=== PATIENT | female | born 1980 | race Caucasian/White ===

== ENCOUNTER 2018-11-15 08:00 | Inpatient (IN) | payer OTHER ==
[2018-11-15 08:32] VITALS: BMI 38.4
[2018-11-15] MEDS ORDERED: ELECTROLYTE-148 SOLN 1,000 ML IV ONE (09:15)
[2018-11-15] MEDS ORDERED: CITRIC ACID/SODIUM CITRATE 30 ML UNIT-DOSE CUP PO ONE (09:15)
[2018-11-15] MEDS ORDERED: ELECTROLYTE-148 SOLN 1,000 ML IV SCH ×2 (09:15→10:30)
[2018-11-15] MEDS ORDERED: TUBERCULIN PPD 5 TU/0.1ML SYRINGE (IN PATIENT USE ONLY) ID ONE (10:00)
--- NOTE | 2018-11-15 10:25 | HP ---
Past Medical History - Primary Care Physician PCP:: Shantelle Lofton - Admission Chief Complaint: Previous Section X 2 History of Present Illness: 38 yo AMA obesity edc EGA 39 weeks admitted repeat section History Source: Patient Limitations to Obtaining History: No Limitations - Past Medical History ...: 3 ...Para: 2 ...Term: 2 ...: 0 ...Spon : 0 ...Induced : 0 ...Multiple Gestation: 0 ...EDC by Sono: 11/21/18 - Past Surgical History Past Surgical History: Yes: Hx Myomectomy: No Hx Transabdominal Cerclage: No - Smoking History Smoking history: Never smoked Have you smoked in the past 12 months: No - Alcohol/Substance Use Hx Alcohol Use: No History of Substance Use: reports: None - Social History Usual Living Arrangement: Yes: With Spouse History of Recent Travel: No Home Medications - Allergies Allergies/Adverse Reactions: Allergies Allergy/AdvReac Type Severity Reaction Status Date / Time No Known Drug Allergies Allergy Verified 12/06/12 11:56 - Home Medications Home Medications: Ambulatory Orders Acetaminophen [Tylenol .Regular Strength -] 325 mg PO Q4H PRN #2 tablet Ibuprofen [Motrin -] 200 mg PO Q4H PRN #3 tablet 12/10/12 Review of Systems - Review of Systems Constitutional: reports: No Symptoms Eyes: reports: No Symptoms HENT: reports: No Symptoms Neck: reports: No Symptoms Cardiovascular: reports: No Symptoms Respiratory: reports: No Symptoms Gastrointestinal: reports: No Symptoms Genitourinary: reports: No Symptoms Breasts: reports: No Symptoms Reported Musculoskeletal: reports: No Symptoms Integumentary: reports: No Symptoms Neurological: reports: No Symptoms Endocrine: reports: No Symptoms Hematology/Lymphatic: reports: No Symptoms Psychiatric: reports: No Symptoms Physical Exam - Maternity Vital Signs: Vital Signs Temperature 98.1 F 11/15/18 08:00 Pulse Rate 98 H 11/15/18 08:00 Respiratory Rate 18 11/15/18 08:00 Blood Pressure 117/80 11/15/18 08:00 O2 Sat by Pulse Oximetry (%) Constitutional: Yes: Well Nourished, No Distress Neck: Yes: WNL Cardiovascular: Yes: WNL, Regular Rate and Rhythm Lungs: Clear to auscultation Breast(s): Yes: WNL - Abdominal Exam/OB Presentation: Vertex Contractions: No Monitor Mode: External Heart Rate (range): 150 Category: I - Vaginal Exam/OB Vaginal Bleediing: No Dilatation (cm): closed Effacement (%): long Presentation: Vertex/Position Station: -1 - Physical Exam Edema: No Integumentary: Yes: WNL Hemorrhage Risk Assessment - Risk Factors Medium Risk Factors: Yes: Prior , uterine surgery,or multiple laparotomies Risk Score: 1 Risk Level: Medium Risk Problem List - Problems (1) Previous section Code(s): Z98.891 - HISTORY OF UTERINE SCAR FROM PREVIOUS SURGERY Assessment/Plan Previous Section x 2 iup at 39 weeks plan Repeat Section
[2018-11-15] MEDS ORDERED: METHYLERGONOVINE MALEATE 0.2 MG/1 ML AMP IM PRN (10:27)
[2018-11-15] MEDS ORDERED: ceFAZolin SODIUM 1 GM VIAL ONE (10:46)
[2018-11-15] MEDS ORDERED: ePHEDrine SULFATE 50 MG/1 ML AMPULE ONE (10:46)
[2018-11-15] MEDS ORDERED: morphine SULFATE/Preservative Free 0.5 MG/ML (1cc Syringe) ONE (10:46)
[2018-11-15] MEDS ORDERED: DEXAMETHASONE SOD PHOSPHATE 4 MG/1 ML VIAL ONE (11:19)
[2018-11-15] MEDS ORDERED: OXYTOCIN 10 UNITS/ML VIAL ONE (11:19)
[2018-11-15] MEDS ORDERED: KETOROLAC TROMETHAMINE 30 MG/1 ML VIAL ONE (11:19)
[2018-11-15] MEDS ORDERED: IBUPROFEN 800 MG/8 ML IJ IVPB PRN (11:41)
[2018-11-15 11:56] LABS: VENOUS PC02 46.2 mmHg (41-51)
[2018-11-15 11:59] LABS: VENOUS PH 7.35 (7.31-7.41); VENOUS PO2 20.6 mmHg (30-40)
[2018-11-15 12:00] LABS: ARTERIAL BLOOD GAS PCO2 49.2 mmHg (35-45)
[2018-11-15 12:01] LABS: ALLENS TEST POSITIVE; ARTERIAL BLD GAS O2 SATURATION 35.7 % (95-98); ARTERIAL BLOOD GAS BASE EXCESS -0.9 meq/l (-2-2)
[2018-11-15 12:04] LABS: ARTERIAL BLOOD GAS PO2 19.7 mmHg (80-105)
--- NOTE | 2018-11-15 12:10 | OP ---
Operative Note - Note: Operative Date: 11/15/18 Pre-Operative Diagnosis: Previous Section. Obesity Operation: Reeat Section x 3 Post-Operative Diagnosis: Same as Pre-op Surgeon: Shantelle Lofton Mediation Commissioner: Rafi David Anesthesia: Spinal Estimated Blood Loss (mls): 700 Operative Report Dictated: Yes
[2018-11-15] MEDS ORDERED: ACETAMINOPHEN INJECTION 100 ML IVPB ONE (12:21)
[2018-11-15] MEDS: ACETAMINOPHEN 1000 MG/100 ML VIAL (NON FORMULARY) IVPB PRN (12:30)
[2018-11-15] MEDS ORDERED: OXYTOCIN 20 UNITS in 0.9% NS 20 UNIT/1,000 ML INFUS.BAG IV ONE (13:02)
[2018-11-15] MEDS: OXYTOCIN 20 UNITS in 0.9% NS 20 UNIT/1,000 ML INFUS.BAG IV SCH ×2 (13:13→20:56)
[2018-11-15] MEDS: IBUPROFEN 600 MG TABLET (FP) PO PRN (22:35)
[2018-11-16] MEDS: ACETAMINOPHEN 1000 MG/100 ML VIAL (NON FORMULARY) IVPB PRN (01:28)
[2018-11-16] MEDS: IBUPROFEN 600 MG TABLET (FP) PO PRN ×3 (07:23→22:33)
[2018-11-16] MEDS: SIMETHICONE 80 MG TAB.CHEW (FP) PO PRN ×3 (07:23→22:33)
[2018-11-16 08:23] LABS: BASO % 0.4 % (0-2.0); EOS % 0.2 % (0-4.5); HEMATOCRIT 34.2 % (32.4-45.2); HEMOGLOBIN 11.5 GM/dL (10.7-15.3); LYMPH % 25.9 % (8-40); MCH 29.6 pg (25.7-33.7); MCHC 33.6 g/dl (32.0-36.0); MEAN PLT VOLUME 8.3 fl (7.5-11.1); MONO % 5.7 % (3.8-10.2); NEUT % 67.8 % (42.8-82.8); PLATELET COUNT 178 K/MM3 (134-434); RBC 3.88 M/mm3 (3.60-5.2); RDW 14.6 % (11.6-15.6); WHITE BLOOD COUNT 9.8 K/mm3 (4.0-10.0)
[2018-11-16] MEDS: PRENATAL VITAMINS W/ FOLIC ACID TABLET (FP) PO SCH (09:04)
--- NOTE | 2018-11-16 09:51 | OP ---
DATE OF OPERATION: 11/15/2018 PREOPERATIVE DIAGNOSIS: Previous section x2. OPERATION: Repeat section x3. POSTOPERATIVE DIAGNOSIS: Repeat section x3. Pt was prepped and draped in the usual sterile fashion Time out called in usual fashion Pfannensiel skin incision made in previous scar. cautery was used to go through layers Live female delivered in occipitotransverse position, nose and mouth suction performed, shoulders were delivered without difficulty, cord was clamped and cut, cord blood obtained, cord pH obtained, cord blood sampling obtained. was handed to price checker. Placenta was manually extracted from the uterus. Uterus was exteriorized and cleaned with clean lap pads. The uterine incision was then cleaned with clean lap pads and uterine incision closed using 0 Biosyn suture, 1st layer continuous locking, 2nd layer imbricating the 1st layer. Tubes and ovaries noted to be normal. Uterus anteriorized. Abdominal sweep done. Peritoneal cavity then closed using 0 Biosyn suture. Muscles approximated in the midline using 0 Biosyn suture. Fascia was then closed using 0 Vicryl suture in 2 parts. Skin was closed using 3-0 Vicryl in subcuticular fashion. The wound was washed and dressed. Patient tolerated procedure well. Estimated blood loss was 700 mL. Mariaa [id number] MTDD
[2018-11-16] MEDS ORDERED: BISACODYL 10 MG SUPP.RECT RC PRN (10:27)
[2018-11-16] MEDS ORDERED: oxyCODONE HCL 5 MG TABLET PO PRN (10:27)
--- NOTE | 2018-11-16 10:47 | PN ---
Progress Note (short form) - Note Progress Note: Anesthesiology Post-op POD#1 s/p repeat C/S under Spinal anesthesia with Duramorph. She is sitting up in bed, comfortable in NAD. She states she is much more comfortable today. VSS. Able to walk without difficulty and using restroom without issue. No h/a or n/v. 38 y.o. woman with stable post-op course. Continue management as per primary team.
[2018-11-16] MEDS: oxyCODONE HCL 5 MG TABLET PO PRN ×2 (17:25→22:34)
[2018-11-16] MEDS: OXYTOCIN 20 UNITS in 0.9% NS 20 UNIT/1,000 ML INFUS.BAG IV SCH (22:11)
[2018-11-17] MEDS: oxyCODONE HCL 5 MG TABLET PO PRN (04:29)
[2018-11-17] MEDS: IBUPROFEN 600 MG TABLET (FP) PO PRN ×4 (04:29→21:38)
[2018-11-17] MEDS: PRENATAL VITAMINS W/ FOLIC ACID TABLET (FP) PO SCH (10:02)
[2018-11-17] MEDS: SIMETHICONE 80 MG TAB.CHEW (FP) PO PRN ×2 (15:47→21:38)
--- NOTE | 2018-11-17 17:41 | PN ---
Post Note - Post Date of Delivery: 11/15/18 Post Day: 2 Vital Signs: Vital Signs - 24 hr 11/16/18 11/17/18 22:00 10:00 Temperature 98.4 F 98.3 F Pulse Rate 105 H 95 H Respiratory 18 20 Rate Blood Pressure 113/75 113/52 L - Subjective Subjective: No Complaints - Objective Abdomen: Soft, Non-tender, Other (Incision intact no drainage) Uterus: Fundus firm Vagina: Scant lochia Extremities: Non-tender - Assessment/Plan (1) Previous section Assessment: Other (POD2) Plan: Routine Care
[2018-11-17] MEDS ORDERED: IBUPROFEN 600 MG TABLET (FP) PO PRN (17:42)
[2018-11-17] MEDS: ACETAMINOPHEN 325 MG TABLET (FP) PO PRN (21:39)
[2018-11-18] MEDS: IBUPROFEN 600 MG TABLET (FP) PO PRN ×4 (01:41→23:07)
[2018-11-18] MEDS: ACETAMINOPHEN 325 MG TABLET (FP) PO PRN ×4 (01:42→23:07)
--- NOTE | 2018-11-18 01:53 | PN ---
Post Progress Note - Subjective Subjective: 38 yo Para 3 status post repeat , seen and evaluated. Doing well. Post Day: 3 Type of Delivery: Repeat C/S Vital Signs: Vital Signs Temperature 98.6 F 11/17/18 22:00 Pulse Rate 95 H 11/17/18 22:00 Respiratory Rate 18 11/17/18 22:00 Blood Pressure 121/69 11/17/18 22:00 O2 Sat by Pulse Oximetry (%) 99 11/15/18 13:00 Breast Exam: Yes: Soft Uterus: Yes: Fundus Firm Incision: Yes: Sutures intact Abdomen/GI: Yes: Abdomen soft, Tolerating PO Lochia: Yes: Rubra Lochia, amount: Small Extremities: Yes: Calves non-tender Activity: Ambulating - Labs Labs: CBC WBC 9.8 K/mm3 (4.0-10.0) 11/16/18 07:30 RBC 3.88 M/mm3 (3.60-5.2) 11/16/18 07:30 Hgb 11.5 GM/dL (10.7-15.3) 11/16/18 07:30 Hct 34.2 % (32.4-45.2) 11/16/18 07:30 MCV 88.0 fl (80-96) 11/16/18 07:30 MCH 29.6 pg (25.7-33.7) 11/16/18 07:30 MCHC 33.6 g/dl (32.0-36.0) 11/16/18 07:30 RDW 14.6 % (11.6-15.6) 11/16/18 07:30 Plt Count 178 K/MM3 (134-434) 11/16/18 07:30 MPV 8.3 fl (7.5-11.1) 11/16/18 07:30 Absolute Neuts (auto) 6.7 K/mm3 (1.5-8.0) 11/16/18 07:30 Neutrophils % 67.8 % (42.8-82.8) 11/16/18 07:30 Lymphocytes % 25.9 % (8-40) 11/16/18 07:30 Monocytes % 5.7 % (3.8-10.2) 11/16/18 07:30 Eosinophils % 0.2 % (0-4.5) 11/16/18 07:30 Basophils % 0.4 % (0-2.0) 11/16/18 07:30 Nucleated RBC % 0 % (0-0) 11/16/18 07:30 Assessment/Plan Status post repeat Ambulation Analgesia as needed Continue post op care
[2018-11-18 08:25] LABS: BASO % 0.7 % (0-2.0); EOS % 1.5 % (0-4.5); HEMATOCRIT 32.8 % (32.4-45.2); HEMOGLOBIN 11.1 GM/dL (10.7-15.3); LYMPH % 28.5 % (8-40); MCH 29.7 pg (25.7-33.7); MCHC 33.9 g/dl (32.0-36.0); MEAN CELL VOLUME 87.6 fl (80-96); MEAN PLT VOLUME 7.7 fl (7.5-11.1); MONO % 7.1 % (3.8-10.2); NEUT % 62.2 % (42.8-82.8); PLATELET COUNT 198 K/MM3 (134-434); RBC 3.74 M/mm3 (3.60-5.2); RDW 14.6 % (11.6-15.6); WHITE BLOOD COUNT 7.5 K/mm3 (4.0-10.0)
[2018-11-18] MEDS: PRENATAL VITAMINS W/ FOLIC ACID TABLET (FP) PO SCH (09:22)
[2018-11-18] MEDS: SIMETHICONE 80 MG TAB.CHEW (FP) PO PRN ×2 (18:04→23:06)
[2018-11-18 21:48] VITALS: TEMP 98.3
--- NOTE | 2018-11-19 01:57 | DS ---
Physical Exam-SOFTWARE CLIENT ARCHITECT Vital Signs: Vital Signs Temperature 98.3 F 11/18/18 21:48 Pulse Rate 80 11/18/18 21:48 Respiratory Rate 18 11/18/18 21:48 Blood Pressure 119/66 11/18/18 21:48 O2 Sat by Pulse Oximetry (%) 99 11/15/18 13:00 Constitutional: Yes: Well Nourished, No Distress Neck: Yes: WNL Cardiovascular: Yes: WNL, Regular Rate and Rhythm Respiratory: Yes: WNL, Regular, CTA Bilaterally Gastrointestinal: Yes: WNL External Genitalia: Yes: Normal Labs: CBC, BMP 11/18/18 07:20 Delivery - Delivery Type of Anesthesia: Spinal Episiotomy/Laceration: None EBL (cc): 700 Delivery, Single - Stages of Labor Date of Delivery: 11/15/18 Time of Delivery: 11:21 Time Placenta Delivered: 11:23 - Condition of Telex Operator/Rental Clerk Present: Yes Name: Rohini Vega Infant Gender: Female Weight: 7 lb 13 oz Position: OA Total Hours ROM (Hrs/Mins): 3 MIN - 1 Minute Total Score: 9 5 Minutes Total Score: 9 - [place] Feeding Plan Initial Plan: Elected not to breastfeed exclusively throughout hospitalization Discharge Summary Reason For Visit: Current Active Problems Previous section (Acute) Procedures: Principal: Repeat Section Hospital Course: unremarkable Condition: Good - Instructions Diet, Activity, Other Instructions: Physical activity Resume your normal everyday activity as tolerated no heavy lifting or exercise until seen by your surgeon. You may walk unlimited rebeca of and climb stairs. You may resume driving the car when you feel safe and comfortable behind the wheel. No sexual activity as instructed. Wound care If you have a bandage, leave it on, and keep dry for 48-72 hours. After that time discard the outer bandage. If they are tapes on the skin under the out of bandage leave them in place. They will peel off in the next 7 to 10 days. Do Not Peel them off. You may shower the day after surgery. If there are tapes present on the skin, you may shower over them. Diet There are no dietary restrictions. Eat healthy, high-fiber foods. Drink 6 to 8 glasses of liquid each day. This will assist in keeping your bowels are regular. Pain management You may take Tylenol or acetaminophen or Ibuprofen (for example, Motrin, Advil etc.) from my pain prescription medication is ordered should be taken as prescribed for moderate to severe pain. Call MD for any of the following: Severe pain not relieved by medication Fever of 101 or higher Excessive bleeding or drainage on dressing Inability to urinate Referrals: Shantelle Lofton MD [Staff Physician] - Disposition: HOME - Home Medications Comprehensive Discharge Medication List: Ambulatory Orders Pnv No.95/Ferrous Fum/Folic AC [ Vitamin Tablet] 1 each PO DAILY
[2018-11-19] MEDS: IBUPROFEN 600 MG TABLET (FP) PO PRN (08:34)
[2018-11-19] MEDS: ACETAMINOPHEN 325 MG TABLET (FP) PO PRN (08:35)
[2018-11-19 09:48] VITALS: BP 134/79; PULSE 89
[2018-11-19] MEDS: PRENATAL VITAMINS W/ FOLIC ACID TABLET (FP) PO SCH (10:36)
--- NOTE | 2018-11-19 16:38 | PATH ---
Surgical Pathology Report Patient Name: POLI NOYOLA [facility]. Rec. 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 Specimen(s) Received PLACENTA Clinical History , 39.1 weeks, repeat , advanced maternal age, previous x2 Final Diagnosis PLACENTA: THIRD TRIMESTER PLACENTA. TRIVASCULAR CORD. MEMBRANES WITH NO DIAGNOSTIC ABNORMALITIES. Electronically Signed Oanh Oneal M.D. Gross Description The specimen is received fresh labeled placenta and is a 465 gram, 19.0 x 14.5 x 2.2 cm. placenta with attached membranes and umbilical cord. The attached membranes are singh, translucent with focal opacities and insert marginally. The umbilical cord measures 10 cm. in length and averages 1.1 cm. in diameter. The cord inserts eccentrically, 3 cm. to the nearest margin. No true knots or strictures are identified. Cut surface of the umbilical cord reveals 3 vessels. The surface is najera blue with moderate fibrin deposition and appropriate caliber vessels. The maternal surface is red-brown with focal defects. Sectioning reveals red-brown, spongy parenchyma. No lesions are identified. Hose Turner sections are submitted in three cassettes as follows: 1- membrane rolls and umbilical cord; 2-3- full thickness sections of placenta. /[facility]
== END 2018-11-19 11:20 | disposition home or self-care (01) | DRG 540 ==
LOC: JLDR 08:00 → J3W 13:37
PROVIDERS: ADMIT Obstetrics & Gynecology; ATTEND Obstetrics & Gynecology
PROC: 10D00Z1 Extraction of Products of Conception, Low, Open Approach (ICD-10-PCS; principal; 2018-11-15)
DX: O34.211 Maternal care for low transverse scar from previous cesarean delivery (principal); E66.9 Obesity, unspecified; O99.214 Obesity complicating childbirth; Z3A.39 39 weeks gestation of pregnancy; Z37.0 Single live birth
CPT/HCPCS: 36415; 36600; 80048; 82803; 85025; 85610; 85730; 86593; 86850; 86900; 86901; 88307-TC; J0131